=== PATIENT | male | born 1960 | race Two or more races ===

== ENCOUNTER 2024-07-10 12:24 | Outpatient (CLI) | payer OTHER | END 2024-07-10 12:37 | disposition home or self-care (01) | LOC: MRI 12:24 | DX: M25.511 Pain in right shoulder (principal) | CPT/HCPCS: 73221 ==

== ENCOUNTER 2024-09-20 05:10 | Day surgery (SDC) | payer OTHER ==
[2024-09-10 10:47] VITALS: BP 132/82
[2024-09-10 11:09] LABS: URINE BILIRRUBIN Negative (NEGATIVE); URINE BLOOD Negative; URINE COLOR Yellow; URINE EPITHELIAL CELLS 1.5 uL (0.0-38.8); URINE GLUCOSE Negative (NEGATIVE); URINE KETONE Negative (NEGATIVE); URINE LEUKOCYTE Negative; URINE NITRATE Negative; URINE PROTEIN Negative (NEGATIVE); URINE RBC 2.2 uL (0.0-20.8); URINE UROBILINOGEN 0.2 E.U./dl
[2024-09-10 11:27] LABS: HEMATOCRIT 45.3 % (39.0-48.0); HEMOGLOBIN 15.3 g/dL (13-16.00); MEAN CELL VOLUME 86.1 fL (80.0-100.00); MEAN CORPUSCULAR HEMOGLOBIN 29.1 pg (27.00-32.0); MEAN CORPUSCULAR HGB CONC 33.8 g/dl (32.0-36.0); PLATELET COUNT 138 K/uL (150-450); RED BLOOD COUNT 5.26 M/uL (4.00-6.00); RED CELL DISTRIBUTION WIDTH 13.2 % (11.5-14.5)
[2024-09-10 11:36] LABS: URINE APPEARANCE CLEAR; URINE BACTERIA 3.6 uL (0.0-1933); URINE WBC 1.5 uL (0.0-23.2)
[2024-09-10 12:01] LABS: INR 1.04; PARTIAL THROMBOPLASTIN TIME 28.2 SECONDS (22.0-34.0); PROTHROMBIN TIME 11.3 SECONDS (9.0-11.5)
[2024-09-10 12:20] LABS: ALBUMIN 3.9 gm/dL (3.4-5.0); BILIRUBIN TOTAL 0.9 mg/dL (0.3-1.2); CALCIUM 9.1 mg/dL (8.5-10.1); CREATININE SERUM 0.7 mg/dL (0.70-1.30); GFR 114.65; GLOBULINA 3.2 G/DL (2.4-3.5); POTASSIUM 4.31 mEq/L (3.5-5.1); TOTAL PROTEIN 7.1 gm/dL (6.4-8.2)
[~2024-09-20] VITALS: Ht 180.3 cm; Wt 80.7 kg
[~2024-09-20 05:10] MED LIST: LIPITOR20 MG PO; MULTIPLE VITAM1 EAC2 PO
[2024-09-20] MEDS ORDERED: BUPIVACAINE HCL/MPF 0.5% 30ML VIAL ONE (07:37)
[2024-09-20] MEDS ORDERED: KETOROLAC TROMETHAMINE 30 MG VIAL ONE (07:37)
[2024-09-20] MEDS ORDERED: LIDOCAINE HCL 1%/EPINEPHRINE 20ML VIAL IJ ONE (07:38)
[2024-09-20] MEDS ORDERED: CEFAZOLIN SODIUM 1,000 MG VIAL ONE (07:54)
[2024-09-20] MEDS ORDERED: TRANEXAMIC ACID 100MG/1ML (1000MG) AMPUL IV ONE (09:30)
[2024-09-20] MEDS ORDERED: SUGAMMADEX SODIUM 200 MG/2 ML VIAL IV ONE (09:32)
== END 2024-09-20 12:15 | disposition home or self-care (01) ==
LOC: CIR.AMB 05:10
PROVIDERS: ATTEND Orthopaedic Surgery
DX: M75.121 Complete rotator cuff tear or rupture of right shoulder, not specified as traumatic (principal); M24.111 Other articular cartilage disorders, right shoulder; M75.21 Bicipital tendinitis, right shoulder; K21.9 Gastro-esophageal reflux disease without esophagitis